=== PATIENT | female | born 1960 | race African-American/Black ===

== ENCOUNTER 2019-08-26 13:28 | Emergency (ER) | payer OTHER ==
[2019-08-26] MEDS ORDERED: Fentanyl 100 MCG/2 ML VIAL ONE (14:05)
[2019-08-26 14:52] LABS: #Lymphocytes 1.1 thou/uL (1.20-3.40); #Monocytes 0.7 thou/uL (0.11-0.59); #Neutrophils 5.4 thou/uL (1.40-6.50); %Basophils 0.3 % (0.0-1.0); %Eosinophils 0.2 % (0.0-10.0); %Lymphocytes 15.6 % (21.0-51.0); %Monocytes 9.1 % (0.0-10.0); %Neutrophils 74.8 % (42.0-75.0); Mean Corpuscular HGB CONC 31.6 g/dL (32.0-36.0); Mean Corpuscular Hemoglobin 29.2 pg (27.0-31.0); Mean Corpuscular Volume 92.2 fL (78.0-98.0); Mean Platelet Volume 8.6 fL (7.4-10.4); Platelet Count 203 thou/uL (130-400); RBC Distribution Width 14.9 % (11.5-14.5); Red Blood Cell (RBC) Count 3.44 mill/uL (4.20-5.40); White Blood Cell (WBC) Count 7.2 thou/uL (4.8-10.8)
--- NOTE | 2019-08-26 15:00 | RAD ---
XR Chest 1 View Portable HISTORY: Shortness of breath COMPARISON: 02/05/2017 FINDINGS: The heart size is enlarged. The aorta is tortuous. There is mild pulmonary vascular congest ion. No lobar consolidation, pneumothoraces or pleural effusions are seen.
[2019-08-26 15:09] LABS: ALT (SGPT) 19 U/L (8-55); AST (SGOT) 30 U/L (5-34); Albumin 2.8 g/dL (3.5-5.0); Alkaline Phosphatase 143 U/L (40-110); Anion Gap 17 mmol/L (10-20); BUN (Urea Nitrogen) 42 mg/dL (9.8-20.1); Bilirubin, Total 0.6 mg/dL (0.2-1.2); Calc. Creatinine Clearance 0 mL/min (70-130); Calcium 8.5 mg/dL (7.8-10.44); Carbon Dioxide 28 mmol/L (22-29); Chloride 99 mmol/L (98-107); Estimated GFR-MDRD 6; Globulin 4.2 g/dL (2.4-3.5); Glucose 80 mg/dL (70-105); Potassium 4.3 mmol/L (3.5-5.1); Sodium 140 mmol/L (136-145)
[2019-08-26 15:31] LABS: CKMB 0.9 ng/mL (0-6.6)
--- NOTE | 2019-08-26 15:38 | ULT ---
EXAM: Left lower extremity venous Doppler US HISTORY: left lower extremity edema and pain FINDINGS: Grayscale, color-flow, Doppler evaluation, spectral analysis of the left lower extremity venous struc tures is performed with 2-D imaging. The left common femoral, superficial femoral, popliteal, posterior tibial, proximal greater saphenous and profunda femoral veins are imaged. There is normal luminal compressibility, flow, and augmentation the visualized deep venous structures of the left lower extremity. IMPRESSION: No evidence of a deep vein thrombosis in the left lower extremity. Transcribed Date/Time: 08/26/2019 3:37 PM
[2019-08-26] MEDS ORDERED: Cephalexin 250 MG CAP ONE (15:49)
[2019-08-26 17:07] LABS: Troponin I 0.173 ng/mL (< 0.028)
== END 2019-08-26 17:49 | disposition home or self-care (01) ==
LOC: ERS 13:28 → EEVIPCON 13:28 → ERS 17:49
DX: L03.116 Cellulitis of left lower limb (principal); R07.9 Chest pain, unspecified; I11.0 Hypertensive heart disease with heart failure; I50.9 Heart failure, unspecified; D64.9 Anemia, unspecified; M32.9 Systemic lupus erythematosus, unspecified; J45.909 Unspecified asthma, uncomplicated; F25.9 Schizoaffective disorder, unspecified; F17.210 Nicotine dependence, cigarettes, uncomplicated; Z99.2 Dependence on renal dialysis; Z79.899 Other long term (current) drug therapy; Z79.51 Long term (current) use of inhaled steroids
CPT/HCPCS: 36415; 36416; 71045; 80053; 82553; 84484; 85025; 93005; 96374; J3010

== ENCOUNTER 2019-09-25 12:12 | Emergency (ER) | payer OTHER ==
[2019-09-25 13:00] LABS: Hemoglobin 9.4 g/dL (12.0-16.0); Mean Corpuscular Hemoglobin 29.8 pg (27.0-31.0); Mean Corpuscular Volume 90.3 fL (78.0-98.0); Mean Platelet Volume 9.5 fL (7.4-10.4); Platelet Count 193 thou/uL (130-400); RBC Distribution Width 15.4 % (11.5-14.5); Red Blood Cell (RBC) Count 3.14 mill/uL (4.20-5.40)
[2019-09-25 13:04] LABS: #Basophils 0.1 thou/uL (0.0-0.2); #Lymphocytes 0.8 thou/uL (1.20-3.40); #Monocytes 0.7 thou/uL (0.11-0.59); #Neutrophils 5.1 thou/uL (1.40-6.50); %Basophils 0.8 % (0.0-1.0); %Lymphocytes 11.6 % (21.0-51.0); %Monocytes 10.2 % (0.0-10.0); %Neutrophils 77.4 % (42.0-75.0); White Blood Cell (WBC) Count 6.6 thou/uL (4.8-10.8)
--- NOTE | 2019-09-25 13:07 | RAD ---
SINGLE VIEW CHEST: Date: 09/25/2019 COMPARISON: 08/26/2019. HISTORY: Chest pain. FINDINGS: Single view of the chest shows an enlarged but stable cardiomediastinal silhouette. There is no evide nce of consolidation, mass, or pleural effusion. Increased interstitial lung markings are present. IMPRESSION: Cardiomegaly. POS: [facility]
[2019-09-25 13:16] LABS: ALT (SGPT) 8 U/L (8-55); AST (SGOT) 18 U/L (5-34); Albumin 2.9 g/dL (3.5-5.0); Alkaline Phosphatase 114 U/L (40-110); Anion Gap 19 mmol/L (10-20); BUN (Urea Nitrogen) 66 mg/dL (9.8-20.1); Bilirubin, Total 0.5 mg/dL (0.2-1.2); Calc. Creatinine Clearance 0 mL/min (70-130); Calcium 9.4 mg/dL (7.8-10.44); Carbon Dioxide 25 mmol/L (22-29); Chloride 101 mmol/L (98-107); Estimated GFR-MDRD 5; Globulin 4.4 g/dL (2.4-3.5); Glucose 90 mg/dL (70-105); Potassium 4.5 mmol/L (3.5-5.1); Protein, Total 7.3 g/dL (6.0-8.3); Sodium 140 mmol/L (136-145)
[2019-09-25 13:37] LABS: CKMB 1.7 ng/mL (0-6.6)
--- NOTE | 2019-09-28 09:53 | CON ---
DATE OF CONSULTATION: 09/25/2019 CONSULTING PHYSICIAN: Dr. Giron from ER. REASON FOR CONSULTATION: End-stage renal disease evaluation and care. REASON FOR ADMISSION: Fluid overload. HISTORY OF PRESENT ILLNESS: A 59-year-old female with history of end-stage renal disease, hypertension, hyperlipidemia, came to the hospital with fluid overload. Actually, she went to dialysis and was found to have a seizure and altered mentation, was sent over here. She was feeling better. Plan is to send her home from ER after dialysis. She was complaining of fluid overload and shortness of breath. PAST MEDICAL HISTORY: Positive for hypertension, COPD, congestive heart failure, lupus, and anemia. PAST SURGICAL HISTORY: Dialysis access surgery. HOME MEDICATIONS: Reviewed. ALLERGIES: NO KNOWN DRUG ALLERGIES. SOCIAL HISTORY: No smoking, alcohol, or illicit drug abuse. FAMILY HISTORY: No history of kidney disease. REVIEW OF SYSTEMS: CONSTITUTIONAL: Negative for weight loss or gain, ability to conduct usual activities. SKIN: Negative for rash, itching. EYES: Negative for double vision, pain. ENT/MOUTH: Negative for nose bleeding, neck stiffness, pain, tenderness. CARDIOVASCULAR: Negative for palpitations, dyspnea on exertion, orthopnea. RESPIRATORY: Negative for shortness of breath, wheezing, cough, hemoptysis, fever or night sweats. GASTROINTESTINAL: Negative for poor appetite, abdominal pain, heartburn, nausea, vomiting, constipation, or diarrhea. GENITOURINARY: Negative for urgency, frequency, dysuria, nocturia. MUSCULOSKELETAL: Negative for pain, swelling. NEUROLOGIC/PSYCHIATRIC: Negative for anxiety, depression. ALLERGY/IMMUNOLOGIC: Negative for skin rash, bleeding tendency. PHYSICAL EXAMINATION: GENERAL: This is a well-built female, in no apparent distress. VITAL SIGNS: Temperature pulse 70, respiratory rate 18, and blood pressure 156/70. HEENT: Atraumatic and normocephalic. Oral mucosa moist. NECK: Supple. CV: S1, S2. Rate and rhythm regular. RESPIRATORY: Clear. GASTROINTESTINAL: Abdomen is soft. MUSCULOSKELETAL: 1+ edema. DERMATOLOGIC: No skin rash. NEUROLOGIC: Alert and awake. PSYCHIATRIC: Mood and affect normal. LABORATORY DATA: Hemoglobin is 9.4, potassium 4.5, BUN is 66, and creatinine is 10.3. ASSESSMENT: 1. End-stage renal disease. Continue on hemodialysis as tolerated. Plan is to do emergent dialysis. 2. Elevated BNP. 3. Fluid overload, remove fluid. 4. Hypertension. 5. Anemia. PLAN: Plan is to have dialysis as tolerated. Job ID: [id number]
== END 2019-09-25 20:23 | disposition home or self-care (01) ==
LOC: ERS 12:12
DX: E87.70 Fluid overload, unspecified (principal); I13.2 Hypertensive heart and chronic kidney disease with heart failure and with stage 5 chronic kidney disease, or end stage renal disease; I50.9 Heart failure, unspecified; N18.6 End stage renal disease; D64.9 Anemia, unspecified; J45.909 Unspecified asthma, uncomplicated; E05.90 Thyrotoxicosis, unspecified without thyrotoxic crisis or storm; F25.9 Schizoaffective disorder, unspecified; F17.210 Nicotine dependence, cigarettes, uncomplicated; Z79.51 Long term (current) use of inhaled steroids; Z99.2 Dependence on renal dialysis; Z79.899 Other long term (current) drug therapy
CPT/HCPCS: 36415; 71045; 80053; 82553; 83880; 84484; 85025; 90935; 93005; G0257